=== PATIENT | male | born 1965 | race Caucasian/White ===

== ENCOUNTER 2023-02-06 14:54 | Outpatient (RCR) | payer BC, SELFPAY ==
--- NOTE | 2023-02-06 15:47 | PTOPEVAL1 ---
Assessment and note entered by Cade Erwin Evaluation Information Assessment Status Evaluation Diagnosis cervicalgia, pain in left shoulder Onset 01/16/23 Subjective Information Pt. reports that he has pain progress neck and left arm pain for several weeks. He reports that he has developed pain across the described left upper trap and numbness into the entire hand. He states that he has pain with turning his head to the left. 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 He reports pain is very intense and he is currently off work. Pt. reports that he has undergone xray. He states that he has MRI scheduled for . He notes that pain will wake him at night and cannot lay on the left side without the arm going numb. Pt. is left hand dominant. He report that his goal is to decrease his arm pain. Assessment PT Clinical Summary Pt. is a 58 year old male who enters the clinci with left shoulder pain and cervicalgia. Pt. presentation is consistent with cervical radiculopathy as well as left shoulder impingement . Pt. currently presents with impaired postural awareness, pain, generalized u.e. weakness and impaired shoulder and c-spine mobility. Continued treatment is indicated in order to address these areas to reduce pain with all IADL's. Plan of Care Interventions Electrical Stimulation,Hot Pack/Cold Pack,Manual Therapy,Mechanical Traction,Neuro Re-education, Patient/Caregiver Educati,Therapeutic Activities, Therapeutic Exercise,Self-Care/Home Management PT Services Indicated Yes Treatment Frequency and 2x/week x 12 visits Duration These treatments will address the objective and functional deficits as defined above. The patient will be advanced safely and appropriately in order for the patient to progress towards his/her prior level of function. Additional exercises will be introduced and as well as a comprehensive home exercise program upon discharge, if needed, ?to ensure carryover of functional gains achieved in the clinic. This treatment plan has been reviewed and agreement upon by the patient.
--- NOTE | 2023-03-16 09:26 | PTOPDC ---
Assessment and note entered by Charity Duarte, PT Evaluation Information Assessment Status Discharge Diagnosis cervicalgia, L shoulder pain Onset 01/16/23 Subjective Information Erasto reports he continues to have increased left shoulder and neck that is worse by the end of his work week. He will have left shoulder surgery on 03/21/23. Reported Pain Level Pain Score 8: Self Report Assessment PT Clinical Summary Erasto Cr completed 11 skilled PT visits for left shoulder and neck pain. He is reporting no overall change in pain and will be having left shoulder surgery on 03/21/23. He continues to demonstrate decreased and painful left shoulder and cervical AROM as well as decreased left shoulder strength. He will be discharged from skilled PT at this time. Plan of Care PT Services Indicated No
== END 2023-03-16 14:06 | disposition home or self-care (01) ==
LOC: CHSPT 14:54
DX: M54.2 Cervicalgia (principal); M25.512 Pain in left shoulder
CPT/HCPCS: 97012; 97014; 97110; 97140; 97161; G0283

== ENCOUNTER 2023-04-05 08:59 | Outpatient (RCR) | payer BC, SELFPAY ==
[2023-04-05 09:06] VITALS: BP_SYST 60
--- NOTE | 2023-04-05 09:49 | PTOPEVAL1 ---
Assessment and note entered by JT File, PT Evaluation Information Assessment Status Evaluation Diagnosis L RTC repair Onset 03/21/23 Subjective Information patient reports he has been dealing with L shoulder pain and decreased function/use for a long time. he had RTC repair 2 weeks and 1 day ago . he is still in a sling for another 4 weeks, but is coming to therapy for evaluation and treatment to improve his ROM. patient reports he has been lifting the arm without assist at home, and was instructed by his surgeons office to stop doing that for another 4 weeks. patient reports he would like to be able to lift his hand above his head. he reports he has to use his hand to use a controller overhead at work. he reports he would also like to return to prior level independent use of the L UE. Reported Pain Level Pain Score 7: Self Report Assessment PT Clinical Summary mr. moon presents to skilled PT services for evaluation and treatment of decreased rom, pain, and weakness following a L RTC repair. he is currently 2 weeks and 1 day out from surgery. he is under restrictions for passive rom only of the L shoulder. he presents with decreased prom and pain in the L shoulder. he would benefit from continued skilled PT and exercises to improve his shoulder mobility and pain reduction. Plan of Care Interventions Electrical Stimulation,Hot Pack/Cold Pack,Manual Therapy,Patient/Caregiver Educati,Therapeutic Exercise PT Services Indicated Yes Treatment Frequency and 2x weekly for 8 visits Duration These treatments will address the objective and functional deficits as defined above. The patient will be advanced safely and appropriately in order for the patient to progress towards his/her prior level of function. Additional exercises will be introduced and as well as a comprehensive home exercise program upon discharge, if needed, ?to ensure carryover of functional gains achieved in the clinic. This treatment plan has been reviewed and agreement upon by the patient.
[2023-05-01 09:31] VITALS: BP_SYST 120
--- NOTE | 2023-05-01 10:09 | PTOPREEVAL ---
Assessment and note entered by JT File, PT Evaluation Information Assessment Status Evaluation Diagnosis L RTC repair Onset 03/21/23 Subjective Information patient reports he has been dealing with L shoulder pain and decreased function/use for a long time. he had RTC repair 2 weeks and 1 day ago . he is still in a sling for another 4 weeks, but is coming to therapy for evaluation and treatment to improve his ROM. patient reports he has been lifting the arm without assist at home, and was instructed by his surgeons office to stop doing that for another 4 weeks. patient reports he would like to be able to lift his hand above his head. he reports he has to use his hand to use a controller overhead at work. he reports he would also like to return to prior level independent use of the L UE. Reported Pain Level Pain Score 4: Self Report Assessment PT Clinical Summary mr. moon presents to skilled PT services for his 8th skilled therapy visit s/p L RTC repain on . he presents today with improved prom L shoulder flexion, but continued pain/catching in the L shoulder. he would benefit from progression to aarom/arom exercises and elimination of sling wear with continued skilled PT to address his arom /prom deficits, and begin to return to functional mobility of the L shoulder. he has met goals for HEP performance, and readiness for progression to aarom/arom exercises. continue with new goals listed in this evaluation form. Plan of Care Interventions Electrical Stimulation,Hot Pack/Cold Pack,Manual Therapy,Neuro Re-education,Patient/Caregiver Educati,Therapeutic Activities,Therapeutic Exercise PT Services Indicated Yes Treatment Frequency and continue skilled PT 2x weekly for 8 more visits Duration These treatments will address the objective and functional deficits as defined above. The patient will be advanced safely and appropriately in order for the patient to progress towards his/her prior level of function. Additional exercises will be introduced and as well as a comprehensive home exercise program upon discharge, if needed, ?to ensure carryover of functional gains achieved in the clinic. This treatment plan has been reviewed and agreement upon by the patient.
--- NOTE | 2023-05-01 10:10 | OPREHPOC ---
Outpatient Therapy Plan of Care This is a Multidisciplinary Plan of Care that may contain components documented by all disciplines (PT, OT, and ST.) PT Problem 2 PT Problem #2 Impaired Range of Motion PT Goal 1 Goal 1. achieve 155 degrees or better arom L shoulder flexion against gravity 2. achieve 90 degrees arom L shoulder ER in 90 degrees shoulder abduction 3. achieve 75 degrees arom L shoulder IR in 90 degrees shoulder abduction Target Visit 8 PT Problem 3 PT Problem #3 Impaired Strength PT Goal 1 Goal 1. 3+/5 or better overall L shoulder strength Target Visit 8 PT Problem 4 PT Problem #4 Pain PT Goal 1 Goal 1. reduce pain at worst to 2/10 or less in the L shoulder Target Visit 8 PT Problem 5 PT Problem #5 Impaired Functional Mobil PT Goal 1 Goal 1. patient to achieve functional reach behind head to the shirt collar with the L hand 2. patient to achieve functional reach behind back to the lumbar spine with the L hand
--- NOTE | 2023-05-31 09:00 | PTOPREEVAL ---
Assessment and note entered by JT File, PT Evaluation Information Assessment Status Re-evaluation Diagnosis L RTC repair Onset 03/21/23 Subjective Information mr moon reports he feels good today. he reports he always has a little soreness in the mornings and evenings. he reports he returned to the MD but is unsure of any new restrictions for his L shoulder. he is hoping to return to work sometime next week on light duty. Reported Pain Level Pain Score 2: Self Report Assessment PT Clinical Summary mr. moon presents to skilled PT for his 16th skilled therapy visit. he presents with continued weakness in the L shoulder, but displays improved rom. he has met goals for HEP performance, and readiness for progression to strength phase. he would benefit from continued skilled PT with progress towards new goals/updated goals listed below to return to his prior level functional activity performance and quality of life. Plan of Care Interventions Manual Therapy,Neuro Re-education,Patient/ Caregiver Educati,Therapeutic Activities, Therapeutic Exercise PT Services Indicated Yes Treatment Frequency and continue skilled PT 2x weekly for 8 more visits Duration These treatments will address the objective and functional deficits as defined above. The patient will be advanced safely and appropriately in order for the patient to progress towards his/her prior level of function. Additional exercises will be introduced and as well as a comprehensive home exercise program upon discharge, if needed, ?to ensure carryover of functional gains achieved in the clinic. This treatment plan has been reviewed and agreement upon by the patient.
--- NOTE | 2023-05-31 09:00 | OPREHPOC ---
Outpatient Therapy Plan of Care This is a Multidisciplinary Plan of Care that may contain components documented by all disciplines (PT, OT, and ST.) PT Problem 2 PT Problem #2 Impaired Range of Motion PT Goal 1 Goal 1. achieve 160 degrees or better arom L shoulder flexion against gravity 2. achieve 90 degrees arom L shoulder ER in 90 degrees shoulder abduction 3. achieve 75 degrees arom L shoulder IR in 90 degrees shoulder abduction Target Visit 8 Progress Partially Met Comment met 1,3 continue 2 PT Problem 3 PT Problem #3 Impaired Strength PT Goal 1 Goal 1. 3+/5 or better overall L shoulder strength Target Visit 8 Progress Met PT Goal 2 Goal 1. achieve 4+/5 L shoulder strength overall Target Visit 8 PT Problem 4 PT Problem #4 Pain PT Goal 1 Goal 1. reduce pain at worst to 2/10 or less in the L shoulder Target Visit 8 PT Problem 5 PT Problem #5 Impaired Functional Mobil PT Goal 1 Goal 1. patient to achieve functional reach behind head to the shirt collar with the L hand 2. patient to achieve functional reach behind back to the lumbar spine with the L hand 3. patient to lift 10lbs in shoulder flexion to shelf at head/eye level Progress Partially Met Comment met 1
--- NOTE | 2023-07-04 17:53 | PTOPREEVAL ---
Assessment and note entered by JT File, PT Evaluation Information Assessment Status Re-evaluation Diagnosis L RTC repair Onset 03/21/23 Subjective Information Patient reports no pain in the L shoulder at the start of today's session. He did note that he had slight pain this morning upon waking, but after taking pain medication this decreased. Patient reports he is still limited to do some tasks at work until he sees the doctor next on Jul 17. He notes that he is able to perform most household tasks including yardwork without much difficulty. Pt reports pain has reached a 6/10 in the past week, but he notices that pain is now occuring more often in his neck than shoulder. He notes difficulty reaching behind his back to tuck in his shirts, but otherwise is able to do most activities without trouble. Reported Pain Level Pain Score 0: Self Report Assessment PT Clinical Summary Mr. Cr has attended 24 sessions of skilled PT for L RTC repair. Patient demonstrated slightly improved L UE ROM at this visit, but continues to show limitations that restrict him from functional activities such as tucking in his shirt. He continues to show limited L shoulder strength and pain upon testing, preventing him from performing all work duties. Patient is still limited with strengthening program per protocol, but should continue progression with increased repetitions and frequency. Patient would benefit from continued skilled PT to address strength limtiations and functional activities to return to prior level of function and work activities. Plan of Care Interventions Manual Therapy,Neuro Re-education,Patient/ Caregiver Educati,Therapeutic Activities, Therapeutic Exercise PT Services Indicated Yes Treatment Frequency and continue skilled PT 1x/week for additional 4 Duration visits These treatments will address the objective and functional deficits as defined above. The patient will be advanced safely and appropriately in order for the patient to progress towards his/her prior level of function. Additional exercises will be introduced and as well as a comprehensive home exercise program upon discharge, if needed, ?to ensure carryover of functional gains achieved in the clinic. This treatment plan has been reviewed and agreement upon by the patient.
--- NOTE | 2023-07-04 17:53 | OPREHPOC ---
Outpatient Therapy Plan of Care This is a Multidisciplinary Plan of Care that may contain components documented by all disciplines (PT, OT, and ST.) PT Problem 2 PT Problem #2 Impaired Range of Motion PT Goal 1 Goal 1. achieve 160 degrees or better arom L shoulder flexion against gravity 2. achieve 90 degrees arom L shoulder ER in 90 degrees shoulder abduction 3. achieve 75 degrees arom L shoulder IR in 90 degrees shoulder abduction Target Visit 8 Progress Partially Met Comment met 1,3 continue 2 PT Problem 3 PT Problem #3 Impaired Strength PT Goal 1 Goal 1. 3+/5 or better overall L shoulder strength Target Visit 8 Progress Met PT Goal 2 Goal 1. achieve 4+/5 L shoulder strength overall Target Visit 28 Progress Partially Met Comment continue to address PT Problem 4 PT Problem #4 Pain PT Goal 1 Goal 1. reduce pain at worst to 2/10 or less in the L shoulder Target Visit 28 Progress Partially Met Comment continue to address PT Problem 5 PT Problem #5 Impaired Functional Mobil PT Goal 1 Goal 1. patient to achieve functional reach behind head to the shirt collar with the L hand 2. patient to achieve functional reach behind back to the lumbar spine with the L hand 3. patient to lift 10lbs in shoulder flexion to shelf at head/eye level Target Visit 28 Progress Partially Met Comment met 1 and 2, continue to address 3
--- NOTE | 2023-08-02 09:55 | OPREHPOC ---
Outpatient Therapy Plan of Care This is a Multidisciplinary Plan of Care that may contain components documented by all disciplines (PT, OT, and ST.) PT Problem 2 PT Problem #2 Impaired Range of Motion PT Goal 1 Goal 1. achieve 160 degrees or better arom L shoulder flexion against gravity 2. achieve 90 degrees arom L shoulder ER in 90 degrees shoulder abduction 3. achieve 75 degrees arom L shoulder IR in 90 degrees shoulder abduction Target Visit 8 Progress Met Comment goals met PT Problem 3 PT Problem #3 Impaired Strength PT Goal 1 Goal 1. 3+/5 or better overall L shoulder strength Target Visit 8 Progress Met PT Goal 2 Goal 1. achieve 4+/5 L shoulder strength overall Target Visit 28 Progress Met Comment continue to address PT Problem 4 PT Problem #4 Pain PT Goal 1 Goal 1. reduce pain at worst to 2/10 or less in the L shoulder Target Visit 28 Progress Partially Met Comment continue to address PT Problem 5 PT Problem #5 Impaired Functional Mobil PT Goal 1 Goal 1. patient to achieve functional reach behind head to the shirt collar with the L hand 2. patient to achieve functional reach behind back to the lumbar spine with the L hand 3. patient to lift 10lbs in shoulder flexion to shelf at head/eye level Target Visit 28 Progress Met Comment goals met
--- NOTE | 2023-08-02 09:55 | PTOPDC ---
Assessment and note entered by JT File, PT Evaluation Information Assessment Status Discharge Diagnosis L RTC repair Onset 03/21/23 Subjective Information Patient reports some pain deep in the L shoulder. He notes he has returned to work, but towards the end of the day will become more sore. He states he had the most pain Sunday following work reaching 8/10 pain due to working extra hours. He notes that currently he has been having more pain in his neck recently, he notes the doctor has sent an order for PT to address this. Patient reports that since starting Celebrex he has noticed less flare ups of pain. Reported Pain Level Pain Score 3: Self Report Assessment PT Clinical Summary Mr. Cr has attended 28 sessions of skilled PT to address L RTC repair meeting all goals. he demonstrates improved L shoulder ROM and strength from last re-assessment. Patient has returned to work with no limitations, however occasionally has soreness present following the work day. Patient currently has 23% functional decline as assessed by the quick DASH, improving score from 32% at last assessment. At this time patient is to be discharged from PT for L RTC repair with independent HEP and plans to return to PT to address neck pain in the future. Plan of Care PT Services Indicated No
== END 2023-08-01 23:59 | disposition home or self-care (01) ==
LOC: CHSPT 08:59
DX: M75.112 Incomplete rotator cuff tear or rupture of left shoulder, not specified as traumatic (principal); M19.012 Primary osteoarthritis, left shoulder
CPT/HCPCS: 97014; 97110; 97140; 97150; 97161; 97530; G0283

== ENCOUNTER 2023-08-07 10:56 | Outpatient (RCR) | payer BC, SELFPAY ==
--- NOTE | 2023-08-07 13:35 | OPREHPOC ---
Outpatient Therapy Plan of Care This is a Multidisciplinary Plan of Care that may contain components documented by all disciplines (PT, OT, and ST.) PT Problem 1 PT Problem #1 Knowledge Deficit PT Goal 1 Goal 1. Patient to demonstrate independence with HEP to improve progress made in PT. Target Visit 4 PT Problem 2 PT Problem #2 Impaired Range of Motion PT Goal 1 Goal 1. Patient to achieve 25 degrees of active cervical extension to improve ability to look overhead for work. 2. Patient to improve L AROM cervical rotation to 60 degrees to improve ability to look over shoulder while driving. Target Visit 8 PT Problem 3 PT Problem #3 Impaired Strength PT Goal 1 Goal 1. Patient to improve UE strength to 5/5 overall to allow for lifting box from ground to overhead shelf. Target Visit 8 PT Problem 4 PT Problem #4 Pain PT Goal 1 Goal 1. Patient to report no more than 4/10 pain at worst following work day to improve patient's quality of life. Target Visit 8 PT Problem 5 PT Problem #5 Impaired Functional Mobil PT Goal 1 Goal 1. Patient to improve NDI score to no more than 10 % functional decline to allow for improved tolerance to work and home activities. 2. Patient to report ability to sleep throughout the night with no pain to improve quality of sleep . Target Visit 8
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
--- NOTE | 2023-09-04 09:42 | OPREHPOC ---
Outpatient Therapy Plan of Care This is a Multidisciplinary Plan of Care that may contain components documented by all disciplines (PT, OT, and ST.) PT Problem 1 PT Problem #1 Knowledge Deficit PT Goal 1 Goal 1. Patient to demonstrate independence with HEP to improve progress made in PT. Target Visit 4 Progress Met PT Problem 2 PT Problem #2 Impaired Range of Motion PT Goal 1 Goal 1. Patient to achieve 25 degrees of active cervical extension to improve ability to look overhead for work. 2. Patient to improve L AROM cervical rotation to 60 degrees to improve ability to look over shoulder while driving. Target Visit 8 Progress Partially Met PT Problem 3 PT Problem #3 Impaired Strength PT Goal 1 Goal 1. Patient to improve UE strength to 5/5 overall to allow for lifting box from ground to overhead shelf. Target Visit 8 Progress Partially Met PT Problem 4 PT Problem #4 Pain PT Goal 1 Goal 1. Patient to report no more than 4/10 pain at worst following work day to improve patient's quality of life. Target Visit 8 Progress Met PT Problem 5 PT Problem #5 Impaired Functional Mobil PT Goal 1 Goal 1. Patient to improve NDI score to no more than 10 % functional decline to allow for improved tolerance to work and home activities. 2. Patient to report ability to sleep throughout the night with no pain to improve quality of sleep . Target Visit 8 Progress Met
--- NOTE | 2023-09-04 09:43 | PTOPDC ---
Assessment and note entered by JT File, PT Evaluation Information Assessment Status Discharge Diagnosis neck pain Onset 07/18/23 Subjective Information patient reports he feels pretty good this date. he reports he is about as good as he will get. he reports he is working, and has only some pain and tightness in the L side neck after working. Reported Pain Level Pain Score 2: Self Report Assessment PT Clinical Summary mr. moon presents to skilled PT for his 8th skilled therapy visit for his neck pain. as of this date, he his rom and strength are improved, and he has less pain overall. he has met all but one goal for skilled PT, and has returned to all prior sleeping, work, and home/community activities. he will DC skilled PT this date, and continue stretching/exercises on his own at home. Plan of Care PT Services Indicated Yes
== END 2023-09-04 15:20 | disposition home or self-care (01) ==
LOC: CHSPT 10:56
DX: M50.31 Other cervical disc degeneration, high cervical region (principal)
CPT/HCPCS: 97014; 97110; 97140; 97161; G0283